=== PATIENT | female | born 1995 | race Caucasian/White ===

== ENCOUNTER → 2016-09-27 | Outpatient (REF) | payer OTHER ==
[~2016-09-27] MED LIST: ACET500T2 OR; IBUP600T OR; IBUP80TA PO; PNV-CAP5 PO
[2016-09-27 11:23] LABS: MEAN CORPUSCULAR HEMOGLOBIN 27.5 pg (27.0-33.0); MEAN CORPUSCULAR HGB CONC 33.1 g/dl (32.0-36.5); MEAN CORPUSCULAR VOLUME 83.1 fl (80.0-96.0); RED CELL DISTRIBUTION WIDTH 14.2 % (11.5-14.5); WHITE BLOOD COUNT 8.7 K/mm3 (4.0-10.0)
[2016-09-27 11:39] LABS: FOLATE 5.6 NG/ML (>5.4); VITAMIN B12 LEVEL 609 PG/ML (247-911)
[2016-09-27 11:57] LABS: ALBUMIN 3.8 GM/DL (3.2-5.2); ALBUMIN/GLOBULIN RATIO 1.12 (1.00-1.93); ALKALINE PHOSPHATASE 92 U/L (45-117); ALT/SGPT 16 U/L (12-78); ANION GAP 10 MEQ/L (8-16); AST/SGOT 15 U/L (15-37); BILIRUBIN,TOTAL 0.5 MG/DL (0.2-1.0); BLOOD UREA NITROGEN 13 MG/DL (7-18); CALCIUM LEVEL 8.8 MG/DL (8.5-10.1); CARBON DIOXIDE LEVEL 27 MEQ/L (21-32); CHLORIDE LEVEL 107 MEQ/L (98-107); CREATININE FOR GFR 0.78 MG/DL (0.55-1.02); FERRITIN 8 NG/ML (8-252); GLUCOSE, FASTING 80 MG/DL (70-105); PERCENT SATURATION 15.6 % (13.2-37.4); POTASSIUM SERUM 3.9 MEQ/L (3.5-5.1); SODIUM LEVEL 144 MEQ/L (136-145); TOTAL IRON BINDING CAPACITY 405 UG/DL (250-450); TOTAL PROTEIN 7.2 GM/DL (6.4-8.2)
== END ==
LOC: M SFHCCLAY 08:31
PROVIDERS: ATTEND Nurse Practitioner
DX: Z86.2 Personal history of diseases of the blood and blood-forming organs and certain disorders involving the immune mechanism (principal); L65.9 Nonscarring hair loss, unspecified

== ENCOUNTER 2017-02-26 14:08 | Emergency (ER) | payer OTHER, SELFPAY ==
[~2017-02-26] VITALS: Ht 167.6 cm; Wt 68.0 kg
[2017-02-26 14:10] VITALS: BP 121/75
[2017-02-26] MEDS ORDERED: SPRI28TA PO (14:21)
[2017-02-26 15:05] LABS: BASO % 0.3 % (0.0-1.0); EOS % 0.3 % (0.0-3.0); LARGE UNSTAINED CELL # 0.1 K/mm3 (0.0-0.4); LARGE UNSTAINED CELL % 1.5 % (0.0-4.0); LYMPH # 2.3 K/mm3 (1.5-6.5); LYMPH % 22.9 % (24.0-44.0); MEAN CORPUSCULAR HEMOGLOBIN 26.3 pg (27.0-33.0); MEAN CORPUSCULAR HGB CONC 33.1 g/dl (32.0-36.5); MEAN CORPUSCULAR VOLUME 79.5 fl (80.0-96.0); MONO # 0.5 K/mm3 (0.0-0.8); MONO % 5.5 % (0.0-5.0); NEUTROPHILS # 6.5 K/mm3 (1.8-7.7); NEUTROPHILS % 69.5 % (36.0-66.0); PLATELET COUNT, AUTOMATED 327 k/mm3 (150-450); RED CELL DISTRIBUTION WIDTH 15.1 % (11.5-14.5); WHITE BLOOD COUNT 9.3 K/mm3 (4.0-10.0)
[2017-02-26 15:17] LABS: CONTROL LINE HCG INT CTR LINE PRESENT
== END 2017-02-26 16:06 | disposition home or self-care (01) ==
LOC: M ED 15:35
DX: N93.8 Other specified abnormal uterine and vaginal bleeding (principal); Z79.3 Long term (current) use of hormonal contraceptives; Z88.0 Allergy status to penicillin

== ENCOUNTER → 2017-08-23 | Outpatient (CLI) | payer OTHER ==
[~2017-08-23] MED LIST changes: +SPRI28TA PO
--- NOTE | 2017-08-23 17:11 | REP ---
Chest two views HISTORY: Cough Comparison: 10/13/2015 The lungs are clear. The heart is normal in size. The pulmonary vasculature is normal in appearance. The bony structure is intact. IMPRESSION: No acute disease. Signed by Maikel Hernández MD 08/23/2017 05:02 P
== END ==
LOC: M WUC 15:34
PROVIDERS: ATTEND Physician Assistant
DX: R05 Cough (principal)

== ENCOUNTER 2018-02-18 10:56 | Emergency (ER) | payer MEDICAID, OTHER | END 2018-02-18 13:21 | disposition home or self-care (01) | LOC: M ED 10:56 | DX: R05 Cough (principal); R49.0 Dysphonia; R91.8 Other nonspecific abnormal finding of lung field; F17.200 Nicotine dependence, unspecified, uncomplicated; Z88.0 Allergy status to penicillin | CPT/HCPCS: 71046 ==

== ENCOUNTER 2018-10-09 09:56 | Emergency (ER) | payer MEDICAID, OTHER ==
[~2018-10-09] VITALS: Ht 167.6 cm; Wt 68.2 kg
[~2018-10-09 09:56] MED LIST changes: +AZIT-12 PO
[2018-10-09] MEDS ORDERED: prenatal (10:02)
[2018-10-09 10:31] LABS: BASO % 0.3 % (0.0-1.0); EOS # 0.1 10^3/uL (0.0-0.50); EOS % 0.6 % (0.0-3.0); HEMATOCRIT 40.3 % (36.0-47.0); HEMOGLOBIN 13.5 g/dl (12.0-15.5); LYMPH # 2.1 10^3/uL (1.5-6.5); MEAN CORPUSCULAR HEMOGLOBIN 28.7 pg (27.0-33.0); MEAN CORPUSCULAR HGB CONC 33.5 g/dl (32.0-36.5); MEAN CORPUSCULAR VOLUME 85.6 fl (80.0-96.0); MONO # 0.6 10^3/uL (0.0-0.8); MONO % 7.6 % (0.0-5.0); NEUTROPHILS # 5.1 10^3/uL (1.8-7.7); NEUTROPHILS % 65.2 % (36.0-66.0); PLATELET COUNT, AUTOMATED 275 10^3/uL (150-450); RED BLOOD COUNT 4.71 10^6/uL (4.00-5.40); WHITE BLOOD COUNT 7.9 10^3/uL (4.0-10.0)
[2018-10-09 10:34] LABS: URINE PREG TEST NEGATIVE (NEGATIVE)
--- NOTE | 2018-10-09 11:53 | REP ---
EMERGENCY FIRST TRIMESTER OBSTETRIC SONOGRAPHY: HISTORY: Vaginal bleeding. FINDINGS: Transabdominal and transvaginal scanning are performed. On transvaginal imaging, there is no discernible intrauterine gestation. Uterine dimensions are 9.9 x 5.0 x 6.7 cm. Endometrial echo is 0.8 cm thick. Uterus is empty. There is no evidence of free fluid the cul-de-sac. Right ovary measures 3.1 x 2.3 x 2.4 cm. Left ovarian dimensions are 2.9 x 1.9 x 1.8 cm. Doppler flow is normal in both ovaries, resistive indices are 0.55 and 0.67 on the right and left respectively. There is a 0.4 cm echogenic focus in the left ovary which may be a hemorrhagic follicle. No free fluid. IMPRESSION: Empty uterus. No adnexal mass, significant cyst, or free fluid. Nonspecific sonographic findings. Clinical and possibly sonographic followup advised. Electronically Signed by Mehul Sahu MD 10/09/2018 01:21 P
[2018-10-09 11:57] VITALS: BP 113/76
== END 2018-10-09 11:58 | disposition home or self-care (01) ==
LOC: M ED 09:56
DX: N93.9 Abnormal uterine and vaginal bleeding, unspecified (principal); Z88.0 Allergy status to penicillin

== ENCOUNTER → 2018-10-31 | Outpatient (CLI) | payer OTHER ==
[~2018-10-31] MED LIST changes: +prenatal
[2018-10-31 11:36] LABS: HCG, SERUM QUALITATIVE NEGATIVE (NEGATIVE)
[2018-10-31 11:45] LABS: FREE T4 0.87 NG/DL (0.76-1.46)
== END ==
LOC: M LAB 10:46
PROVIDERS: ATTEND Advanced Practice Midwife
DX: N91.1 Secondary amenorrhea (principal)

== ENCOUNTER → 2018-11-02 | Outpatient (CLI) | payer OTHER ==
--- NOTE | 2018-11-02 11:31 | REP ---
PA and lateral chest: Comparison is 02/18/2018. The lung tucker are clear. The cardiac size is normal. The varun, mediastinum, and skeletal structures are unremarkable. Impression: Negative PA and lateral chest. Electronically Signed by Nilay Oconnell MD 11/02/2018 11:22 A
== END ==
LOC: M CLY 11:03
PROVIDERS: ATTEND Family Medicine
DX: R50.9 Fever, unspecified (principal); R05 Cough

== ENCOUNTER 2018-12-25 19:38 | Emergency (ER) | payer OTHER ==
[~2018-12-25] VITALS: Ht 167.6 cm; Wt 71.4 kg
[2018-12-25 19:39] VITALS: BP 111/68
--- NOTE | 2018-12-26 10:20 | REP ---
Clinical: Right knee pain Technique: AP, lateral, bilateral oblique and sunrise views. Findings: The osseous structures and joint spaces are intact and normal. There is no evidence for acute fracture or dislocation. No joint effusion is appreciated. Surrounding soft tissues are unremarkable. No subcutaneous emphysema or radiodense foreign body. Impression: Normal examination. No acute fracture or dislocation. Electronically Signed by Ty Pedersen MD 12/26/2018 10:11 A
== END 2018-12-25 22:30 | disposition left against medical advice (07) ==
LOC: M ED 19:38
DX: Z53.21 Procedure and treatment not carried out due to patient leaving prior to being seen by health care provider (principal)

== ENCOUNTER 2019-07-09 11:29 | Day surgery (SDC) | payer OTHER ==
[~2019-07-09] VITALS: Ht 167.6 cm; Wt 72.8 kg
[~2019-07-09 11:29] MED LIST changes: +LR 1,000 ML IV ONE; +ceFAZolin SOD 2 GM in IV 1 EA IV ONE
[2019-07-09] MEDS ORDERED: LIDOCAINE 1% MDV 20ML VIAL ONE (11:30)
[2019-07-09] MEDS ORDERED: EPINEPHrine INJ 1 MG/ML 1ML AMP ONE (11:30)
[2019-07-09] MEDS ORDERED: ROPIvacaine 0.5% 30 ML INJECTION (J2795 PER 1MG) ONE (11:30)
[2019-07-09] MEDS ORDERED: MIDAZOLAM INJ 2 MG/2 ML VIAL (J2250) As Ordered ONE ×2 (12:02→13:30)
[2019-07-09] MEDS ORDERED: fentaNYL 100 MCG/2 ML INJECTION (J3010) As Ordered ONE ×2 (12:02→13:30)
[2019-07-09] MEDS ORDERED: ROCURONIUM BROMIDE 50 MG/5 ML VIAL As Ordered ONE (12:04)
[2019-07-09] MEDS ORDERED: PROPOFOL 200 MG/20 ML VIAL As Ordered ONE ×3 (12:04→17:08)
[2019-07-09] MEDS ORDERED: dexameTHASONE 4 MG/ML 1ML VIAL (J1100) As Ordered ONE (12:05)
[2019-07-09] MEDS ORDERED: LIDOCAINE 2% INJ 100 MG/5 ML SDV (FOR ANES.) As Ordered ONE (12:05)
[2019-07-09] MEDS ORDERED: ONDANSETRON 4MG/2ML VIAL (J2405) As Ordered ONE (12:05)
[2019-07-09] MEDS ORDERED: KETOROLAC 60 MG/2 ML VIAL (J1885) As Ordered ONE (12:08)
[2019-07-09] MEDS ORDERED: ACETAMINOPHEN 1000MG 100ML IV BTL (OFIRMEV) (J0131 PER 10MG) As Ordered ONE (12:08)
[2019-07-09] MEDS: fentaNYL 100 MCG/2 ML INJECTION (J3010) IV PRN ×3 (14:17→18:21)
[2019-07-09] MEDS: MIDAZOLAM INJ 2 MG/2 ML VIAL (J2250) IV PRN (14:17)
[2019-07-09] MEDS ORDERED: ROPIvacaine 0.5% 30 ML INJECTION (J2795 PER 1MG) As Ordered ONE (15:03)
[2019-07-09] MEDS ORDERED: SCOPOLAMINE 1MG TRANSDERMAL PATCH As Ordered ONE (15:07)
[2019-07-09] MEDS ORDERED: ceFAZolin 2 GM/D5W 50 ML IV BAG (J0690 PER 500MG) As Ordered ONE (15:29)
[2019-07-09] MEDS ORDERED: PHENYLephrine HCL 500 MCG/5 ML (100MCG/ML) SYRINGE (J2370) As Ordered ONE (16:18)
[2019-07-09] MEDS ORDERED: METOCLOPRAMIDE INJ 10MG/2ML VIAL (J2765) As Ordered ONE (17:31)
[2019-07-09] MEDS ORDERED: PERCOCET 5MG/325MG TAB As Ordered ONE (18:14)
[2019-07-09] MEDS ORDERED: METOCLOPRAMIDE INJ 10MG/2ML VIAL (J2765) IV PRN (18:15)
[2019-07-09] MEDS ORDERED: ONDANSETRON 4MG/2ML VIAL (J2405) IV PRN (18:15)
[2019-07-09] MEDS ORDERED: LR 1,000 ML IV SCH ×2 (18:15→19:31)
[2019-07-09] MEDS ORDERED: fentaNYL 100 MCG/2 ML INJECTION (J3010) IV PRN (18:15)
[2019-07-09] MEDS: PERCOCET 5MG/325MG TAB PO PRN ×2 (18:35→19:05)
--- NOTE | 2019-07-09 18:43 | REP ---
C-ARM VIEWS RIGHT KNEE: Three C-ARM views of the right knee are performed. Metallic probe is seen along the periphery of the medial femoral condyle. Osseous structures are well aligned. 8 seconds of fluoroscopy time was utilized. Electronically Signed by Nilay King MD 07/11/2019 09:36 A
[2019-07-09 20:40] VITALS: BP 113/56
--- NOTE | 2019-07-10 08:17 | RO ---
DATE OF PROCEDURE: 07/09/2019 PREOPERATIVE DIAGNOSIS: 1. Right knee recurrent patellar instability. POSTOPERATIVE DIAGNOSIS: 1. Right knee recurrent patellar instability. PROCEDURE: 1. Right knee diagnostic arthroscopy. 2. Right knee medial patellofemoral ligament reconstruction with allograft. SURGEON: Donnell Nieves MD EMERGENCY DEPARTMENT PHYSICIAN: THOR Baires ANESTHESIA: General with preoperative nerve block. IV FLUIDS: Lactated Ringer's. ESTIMATED BLOOD LOSS: 10 mL. IMPLANTS: Arthrex 3 mm SutureTak times two and Arthrex 5.5 mm corkscrew times one. CLOSURE: Nylon. PROCEDURE: Patient identified in preoperative holding area. The right leg was marked by myself. Prior to her nerve block I assessed her lateral patellar translation. She had 3+ quadrants of lateral patellar mobility at the end point and a dramatically positive apprehension sign, but this completely alleviated at 30 degrees of knee flexion and therefore no tibial tubercle osteotomy indicated. Following her abductor canal block, she was brought to the operating room, placed supine on a well-padded OR table. General anesthesia was induced. Exam under anesthesia revealed four quadrants a lateral patellar mobility with no endpoint, grade 1A Teddy, pseudolaxity to valgus stress. Stable to varus stress. Negative posterior drawer. Negative J sign. A well-padded tourniquet was applied of the right thigh. Venodyne boot on the left lower extremity for deep vein thrombosis (DVT) prophylaxis and then the right lower extremity was prepped and draped in a normal sterile fashion from the toes up to the tourniquet. She received appropriate IV antibiotics. Prior to incision, a time-out was performed per hospital protocol. Jennifer Robertson was present for the entire procedure and participated in all essential portions of the procedure. This included patient positioning and draping, holding retractors, stabilizing the patella while drilling, assisting with suture passage and knot tying, assisting with passing the graft and wound closure. The right leg was exsanguinated with an Esmarch bandage and tourniquet inflated to 250 mmHg. The knee was insufflated with Lactated Ringer's. Standard anterolateral portal made with an 11 blade. 30 degree arthroscope was introduced into the joint. A diagnostic arthroscopy revealed that her patella sat subluxated laterally; however, the chondral surfaces were intact in the patellofemoral joint. The gutters were inspected. No loose bodies. The medial compartment was entered. No chondromalacia, no meniscus tears. ACL appeared unremarkable. The leg was brought to the figure four position where there were no chondral defects and no lateral meniscus tears. No indication for chondroplasty. The knee was irrigated and drained. We then proceeded with medial patella-femoral ligament (MPFL) reconstruction. Semitendinosus allograft thawed on the back table and then whipstitches placed in each end by my first breaker feeder. I made a 3 cm incision with a 15 blade along the medial border of the patella and then dissected down to the superficial retinaculum with Metzenbaum scissors. Fresh 15 blade used to dissect through layers one and two, but not violating the capsule. A needle nose rongeur was used to create a trough in the medial border of the patella. I then dissected between layers two and three with Metzenbaum scissors extending medially towards the proposed medial incision at the medial epicondyle. I then placed two Arthrex 3 mm BioComposite SutureTak, one at the equator and the other a centimeter proximal to it. They both had excellent fixation. I then made a separate incision centered over the medial epicondyle and abductor tubercle. I dissected down to the soft spot between the abductor tubercle and the medial epicondyle which was marked with cautery. A small nerve branch and two accompanying small venous structures were mobilized and gently retracted anteriorly and protected throughout the case. A K-wire was then placed with the wire cdl dedicated truck driver at [place]ottle's point. Appropriate position was confirmed using AP and lateral views with a large C-arm. The TigerWire sutures from each anchor in the patella were then passed between layers two and three and wrapped around the K-wire and then the knee was flexed from 0 to 90 degrees to ensure this was the isometric point and it was. I then used a curve free needle to secure the semitendinosus allograft to the medial border of the patella using all four suture limbs from each anchor. Great care was taken to bury the knots as much as possible. With secure fixation to the patella I then placed a 5.5 corkscrew after the K-wire was removed. This had excellent fixation. The tails of the allograft were then passed between layers two and three with a passing stitch and then the free needle was used to anchor each tail of the allograft to the anchor. Prior to securing the construct by tying knots, I did assess lateral patellar translation with the knee at 0, 10, 20, 30, 40 and 50 degrees of flexion. Several additional passes from each of the fiber and TigerWire suture were then made to further tightened the construct. Now there was two quadrants a lateral patellar mobility with a firm endpoint. Great care was taken to not over tighten the construct. Knots were then tied by hand with the knee in 40 degrees of flexion. Excess allograft was trimmed and discarded. Both the fiber and TigerWire were then passed through the deeper fascia with a curve free needle to reinforce the construct. Excess suture was then trimmed and discarded. Both incisions were extensively irrigated. The arthrotomy was then closed with #1 Vicryl in a figure-of-8 fashion taking care to grasp as much of the deep layer as possible. Final assessment of lateral patellar translation revealed two quadrants of lateral patellar mobility with an excellent endpoint. The tourniquet was let down on at 100 minutes with excellent reperfusion. Both incisions were re-irrigated and then closed with #2-0 Vicryl and running nylon. The arthroscopy portals closed with nylon. Bulky sterile dressing was applied. Hinged knee brace locked in extension was placed. All counts were correct times two. Complications none. She was extubated, transferred to postanesthesia care unit (PACU) in stable condition.
== END 2019-07-09 20:50 | disposition home or self-care (01) ==
LOC: M SDC 11:29
PROVIDERS: ATTEND Orthopaedic Surgery
DX: M25.361 Other instability, right knee (principal); Z88.0 Allergy status to penicillin
CPT/HCPCS: 27427; 29870; 64445; 76000; C1713; C1762; J0131; J0690; J1100; J1885; J2250; J2370; J2405; J2765; J2795; J3010

== ENCOUNTER → 2020-11-06 | Outpatient (CLI) | payer OTHER ==
[~2020-11-06] MED LIST changes: -LR 1,000 ML IV ONE; -ceFAZolin SOD 2 GM in IV 1 EA IV ONE
--- NOTE | 2020-11-06 08:50 | REP ---
INDICATION: CHEST PAIN COMPARISON: 02/18/2018, 11/02/2018 TECHNIQUE: PA and lateral. FINDINGS: The mediastinum and cardiac silhouette are normal. No focal consolidation or effusion. A very mild viral interstitial Gomez an cannot be excluded. The skeletal structures are intact and normal. IMPRESSION: No focal consolidation. Mild viral pneumonia cannot be excluded. If the patient remains symptomatic consider repeat chest x-ray or chest CT for further investigation. <Electronically signed by Ty Pedersen > 11/06/20 [id number]
== END ==
LOC: M CLY 08:16
PROVIDERS: ATTEND Nurse Practitioner Family
DX: R07.9 Chest pain, unspecified (principal)

== ENCOUNTER → 2021-08-03 | Outpatient (REF) | payer OTHER ==
[2021-08-04 11:32] LABS: BASO % 0.3 % (0.0-1.0); EOS % 0.3 % (0.0-3.0); HEMATOCRIT 42.4 % (36.0-47.0); HEMOGLOBIN 14.1 g/dl (12.0-15.5); LYMPH # 2.5 10^3/uL (1.5-5.0); MEAN CORPUSCULAR HEMOGLOBIN 28.6 pg (27.0-33.0); MEAN CORPUSCULAR HGB CONC 33.3 g/dl (32.0-36.5); MONO # 0.7 10^3/uL (0.0-0.8); MONO % 7.9 % (2.0-8.0); NEUTROPHILS % 64.3 % (36.0-66.0); PLATELET COUNT, AUTOMATED 322 10^3/uL (150-450); RED BLOOD COUNT 4.93 10^6/uL (4.00-5.40); WHITE BLOOD COUNT 9.3 10^3/uL (4.0-10.0)
[2021-08-04 12:31] LABS: ALBUMIN 4.2 GM/DL (3.2-5.2); ALT/SGPT 25 U/L (12-78); BILIRUBIN,TOTAL 0.3 MG/DL (0.2-1.0); BLOOD UREA NITROGEN 16 MG/DL (7-18); CALCIUM LEVEL 9.9 MG/DL (8.5-10.1); CARBON DIOXIDE LEVEL 33 MEQ/L (21-32); CHLORIDE LEVEL 105 MEQ/L (98-107); CREATININE FOR GFR 0.88 MG/DL (0.55-1.30); FREE T4 0.99 NG/DL (0.76-1.46); GLOMERULAR FILTRATION RATE > 60.0 (>60); GLUCOSE, FASTING 101 MG/DL (70-100); POTASSIUM SERUM 5.1 MEQ/L (3.5-5.1); SODIUM LEVEL 140 MEQ/L (136-145); TOTAL PROTEIN 7.4 GM/DL (6.4-8.2)
== END ==
LOC: M SFHCCLAY 14:35
PROVIDERS: ATTEND Nurse Practitioner Family
DX: R10.11 Right upper quadrant pain (principal); G44.219 Episodic tension-type headache, not intractable

== ENCOUNTER → 2021-08-06 | Outpatient (REF) | payer OTHER | LOC: M LAB REF 15:32 | PROVIDERS: ATTEND Physician Assistant | DX: R05.9 Cough, unspecified (principal) ==

== ENCOUNTER 2021-10-15 17:32 | Emergency (ER) | payer OTHER ==
[2021-10-15 17:32] VITALS: BP 124/78
[2021-10-15] MEDS ORDERED: HYDR-3713 (17:42)
[2021-10-15] MEDS ORDERED: CLIN-250 (17:42)
== END 2021-10-15 20:39 | disposition left against medical advice (07) ==
LOC: M ED 17:32
DX: Z53.21 Procedure and treatment not carried out due to patient leaving prior to being seen by health care provider (principal)

== ENCOUNTER → 2022-04-16 | Outpatient (CLI) | payer OTHER ==
[~2022-04-16] MED LIST changes: +CLIN-250; +HYDR-3713
[2022-04-16 13:15] LABS: BASO % 0.3 % (0.0-1.0); EOS % 0.1 % (0.0-3.0); HEMATOCRIT 39.2 % (36.0-47.0); HEMOGLOBIN 13.3 g/dl (12.0-15.5); LYMPH # 2.1 10^3/uL (1.5-5.0); LYMPH % 18.3 % (24.0-44.0); MEAN CORPUSCULAR HEMOGLOBIN 29.3 pg (27.0-33.0); MEAN CORPUSCULAR HGB CONC 33.9 g/dl (32.0-36.5); MEAN CORPUSCULAR VOLUME 86.3 fl (80.0-96.0); MONO # 0.6 10^3/uL (0.0-0.8); MONO % 5.4 % (2.0-8.0); NEUTROPHILS # 8.6 10^3/uL (1.5-8.5); NEUTROPHILS % 75.5 % (36.0-66.0); PLATELET COUNT, AUTOMATED 294 10^3/uL (150-450); RED BLOOD COUNT 4.54 10^6/uL (4.00-5.40); WHITE BLOOD COUNT 11.4 10^3/uL (4.0-10.0)
[2022-04-16 14:16] LABS: HEPATITIS C VIRUS ABY INDEX < 0.0 INDEX (<0.8); HIV 1&2 SCREEN CENTAUR NEGATIVE (NEGATIVE)
[2022-04-16 16:03] LABS: GC DNA AMPLIFICATION NEGATIVE (NEGATIVE)
== END ==
LOC: M PLALAB 09:23
PROVIDERS: ATTEND Obstetrics & Gynecology
DX: Z34.92 Encounter for supervision of normal pregnancy, unspecified, second trimester (principal); Z3A.00 Weeks of gestation of pregnancy not specified

== ENCOUNTER → 2022-04-16 | Outpatient (CLI) | payer OTHER | LOC: M PLALAB 09:19 | PROVIDERS: ATTEND Advanced Practice Midwife | DX: Z34.81 Encounter for supervision of other normal pregnancy, first trimester (principal); Z3A.00 Weeks of gestation of pregnancy not specified ==

== ENCOUNTER → 2022-06-11 | Outpatient (CLI) | payer OTHER | LOC: M WHC 07:12 | PROVIDERS: ATTEND Obstetrics & Gynecology | DX: Z36.89 Encounter for other specified antenatal screening (principal); Z3A.20 20 weeks gestation of pregnancy; O36.5930 Maternal care for other known or suspected poor fetal growth, third trimester, not applicable or unspecified ==

== ENCOUNTER → 2022-07-06 | Outpatient (CLI) | payer OTHER | LOC: M WHC 09:10 | PROVIDERS: ATTEND Advanced Practice Midwife | DX: O36.5992 Maternal care for other known or suspected poor fetal growth, unspecified trimester, fetus 2 (principal); Z3A.21 21 weeks gestation of pregnancy ==

== ENCOUNTER 2022-07-08 15:34 | Outpatient (CLI) | payer OTHER ==
[~2022-07-08] VITALS: Ht 167.6 cm; Wt 83.9 kg
[2022-07-08] MEDS ORDERED: MULTTAB20 PO (16:02)
[2022-07-08] MEDS ORDERED: ACET-683 PO (16:02)
[2022-07-08 16:05] VITALS: BP 116/67
[2022-07-08] MEDS ORDERED: BETAMETHASONE SOLUSPAN 6MG/ML 5ML VIAL (J0702 PER 3MG) IM ONE (16:05)
[2022-07-08] MEDS ORDERED: HOME MED LIST COMPLETE! XX SCH (16:05)
[2022-07-08 17:48] VITALS: BP 114/62
== END 2022-07-08 18:42 | disposition home or self-care (01) ==
LOC: M LDO 15:34
PROVIDERS: ATTEND Obstetrics & Gynecology
DX: O36.5929 Maternal care for other known or suspected poor fetal growth, second trimester, other fetus (principal); O12.02 Gestational edema, second trimester; Z3A.24 24 weeks gestation of pregnancy
CPT/HCPCS: 59025; 76819; 76820; 96372; J0702

== ENCOUNTER 2022-07-09 16:32 | Outpatient (CLI) | payer OTHER ==
[~2022-07-09] VITALS: Ht 167.6 cm; Wt 83.8 kg
[~2022-07-09 16:32] MED LIST changes: +ACET-683 PO; +MULTTAB20 PO
[2022-07-09 16:59] VITALS: BP 120/68
[2022-07-09] MEDS ORDERED: BETAMETHASONE SOLUSPAN 6MG/ML 5ML VIAL (J0702 PER 3MG) IM ONE (17:05)
[2022-07-09] MEDS ORDERED: HOME MED LIST COMPLETE! XX SCH (17:10)
[2022-07-09 17:30] VITALS: BP 126/68
== END 2022-07-09 17:37 | disposition home or self-care (01) ==
LOC: M LDO 16:32
PROVIDERS: ATTEND Specialist
DX: O36.5920 Maternal care for other known or suspected poor fetal growth, second trimester, not applicable or unspecified (principal); O12.02 Gestational edema, second trimester; Z3A.24 24 weeks gestation of pregnancy
CPT/HCPCS: 59025; 96372; J0702

== ENCOUNTER → 2022-07-16 | Outpatient (CLI) | payer OTHER | LOC: M WHC 12:06 | PROVIDERS: ATTEND Obstetrics & Gynecology | DX: O36.5990 Maternal care for other known or suspected poor fetal growth, unspecified trimester, not applicable or unspecified (principal); O32.2XX0 Maternal care for transverse and oblique lie, not applicable or unspecified; Z3A.00 Weeks of gestation of pregnancy not specified ==

== ENCOUNTER → 2022-07-23 | Outpatient (CLI) | payer OTHER | LOC: M WHC 10:20 | PROVIDERS: ATTEND Obstetrics & Gynecology | DX: O36.5990 Maternal care for other known or suspected poor fetal growth, unspecified trimester, not applicable or unspecified (principal); Z3A.00 Weeks of gestation of pregnancy not specified ==

== ENCOUNTER → 2022-07-29 | Outpatient (CLI) | payer OTHER | LOC: M WHC 10:06 | PROVIDERS: ATTEND Obstetrics & Gynecology | DX: O36.5990 Maternal care for other known or suspected poor fetal growth, unspecified trimester, not applicable or unspecified (principal); Z3A.00 Weeks of gestation of pregnancy not specified ==

== ENCOUNTER → 2022-08-04 | Outpatient (CLI) | payer OTHER | LOC: M WHC 14:53 | PROVIDERS: ATTEND Obstetrics & Gynecology | DX: O36.5990 Maternal care for other known or suspected poor fetal growth, unspecified trimester, not applicable or unspecified (principal); Z3A.28 28 weeks gestation of pregnancy ==

== ENCOUNTER → 2022-08-11 | Outpatient (CLI) | payer OTHER ==
[~2022-08-11] MED LIST changes: +TUMS500C PO
[2022-08-17 23:10] LABS: ANTI PARVO VIRUS LEVEL IGG 0.2 index (0.0-0.8); ANTI PARVO VIRUS LEVEL IgM 0.2 index (0.0-0.8); COXSACKIE TYPE B1 1:32 (Neg:<1:8); COXSACKIE TYPE B3 1:32 (Neg:<1:8); COXSACKIE TYPE B4 1:32 (Neg:<1:8); COXSACKIE TYPE B6 1:32 (Neg:<1:8); CYTOMEGALOVIRUS IgG ANTIBODY <0.60 U/mL (0.00-0.59); CYTOMEGALOVIRUS IgM ANTIBODY <30.0 AU/mL (0.0-29.9); HERPES ZOSTER, VARICELLA IgG 297 index (Immune >165); HERPES ZOSTER, VARICELLA IgM <0.91 index (0.00-0.90); HSV TYPE II IgG SPECIFIC <0.91 index (0.00-0.90); RUBELLA IgG FOR TORCH EVAL 1.48 index (Immune >0.99); TOXOPLASMA IgG ABY <3.0 IU/mL (0.0-7.1)
== END ==
LOC: M PLALAB 10:49
PROVIDERS: ATTEND Advanced Practice Midwife
DX: O36.5990 Maternal care for other known or suspected poor fetal growth, unspecified trimester, not applicable or unspecified (principal); Z3A.00 Weeks of gestation of pregnancy not specified

== ENCOUNTER → 2022-08-11 | Outpatient (CLI) | payer OTHER ==
[2022-08-11 13:58] LABS: HEMATOCRIT 35.9 % (36.0-47.0); HEMOGLOBIN 11.8 g/dl (12.0-15.5); MEAN CORPUSCULAR HGB CONC 32.9 g/dl (32.0-36.5); MEAN CORPUSCULAR VOLUME 88.2 fl (80.0-96.0); PLATELET COUNT, AUTOMATED 307 10^3/uL (150-450); RED BLOOD COUNT 4.07 10^6/uL (4.00-5.40); WHITE BLOOD COUNT 13.1 10^3/uL (4.0-10.0)
[2022-08-11 17:04] LABS: GC DNA AMPLIFICATION NEGATIVE (NEGATIVE)
== END ==
LOC: M PLALAB 10:47
PROVIDERS: ATTEND Obstetrics & Gynecology
DX: Z36.89 Encounter for other specified antenatal screening (principal); Z3A.24 24 weeks gestation of pregnancy

== ENCOUNTER → 2022-08-11 | Outpatient (CLI) | payer OTHER | LOC: M WHC 09:47 | PROVIDERS: ATTEND Obstetrics & Gynecology | DX: O36.5992 Maternal care for other known or suspected poor fetal growth, unspecified trimester, fetus 2 (principal); Z3A.25 25 weeks gestation of pregnancy ==

== ENCOUNTER 2022-08-16 11:54 | Outpatient (CLI) | payer OTHER ==
[~2022-08-16] VITALS: Ht 167.6 cm; Wt 88.6 kg
[~2022-08-16 11:54] MED LIST changes: -TUMS500C PO
[2022-08-16 12:14] VITALS: BP 114/75
[2022-08-16] MEDS ORDERED: TUMS500C PO (12:18)
[2022-08-16] MEDS ORDERED: HOME MED LIST COMPLETE! XX SCH (12:20)
[2022-08-16 12:52] VITALS: BP 115/68
== END 2022-08-16 14:42 | disposition home or self-care (01) ==
LOC: M LDO 11:54
PROVIDERS: ATTEND Advanced Practice Midwife
DX: O36.5930 Maternal care for other known or suspected poor fetal growth, third trimester, not applicable or unspecified (principal); Z3A.30 30 weeks gestation of pregnancy

== ENCOUNTER → 2022-08-18 | Outpatient (CLI) | payer OTHER ==
[~2022-08-18] MED LIST changes: +TUMS500C PO
== END ==
LOC: M RAD 12:23
PROVIDERS: ATTEND Obstetrics & Gynecology
DX: O36.5933 Maternal care for other known or suspected poor fetal growth, third trimester, fetus 3 (principal); Z3A.30 30 weeks gestation of pregnancy; O32.1XX0 Maternal care for breech presentation, not applicable or unspecified

== ENCOUNTER → 2022-08-26 | Outpatient (CLI) | payer OTHER | LOC: M WHC 10:08 | PROVIDERS: ATTEND Obstetrics & Gynecology | DX: O36.5993 Maternal care for other known or suspected poor fetal growth, unspecified trimester, fetus 3 (principal); Z3A.31 31 weeks gestation of pregnancy ==

== ENCOUNTER → 2022-09-02 | Outpatient (CLI) | payer OTHER | LOC: M WHC 09:59 | PROVIDERS: ATTEND Obstetrics & Gynecology | DX: O36.8990 Maternal care for other specified fetal problems, unspecified trimester, not applicable or unspecified (principal); Z3A.32 32 weeks gestation of pregnancy ==

== ENCOUNTER → 2022-09-09 | Outpatient (CLI) | payer OTHER | LOC: M WHC 10:01 | PROVIDERS: ATTEND Obstetrics & Gynecology | DX: O36.5990 Maternal care for other known or suspected poor fetal growth, unspecified trimester, not applicable or unspecified (principal) ==

== ENCOUNTER → 2022-09-14 | Outpatient (CLI) | payer OTHER | LOC: M WHC 11:26 | PROVIDERS: ATTEND Obstetrics & Gynecology | DX: O36.5990 Maternal care for other known or suspected poor fetal growth, unspecified trimester, not applicable or unspecified (principal); Z3A.00 Weeks of gestation of pregnancy not specified ==

== ENCOUNTER → 2022-09-14 | Outpatient (CLI) | payer OTHER ==
[2022-09-14 17:30] LABS: PROTHROMBIN TIME 13.4 SECONDS (12.5-14.5)
[2022-09-14 17:31] LABS: PARTIAL THROMBOPLASTIN TIME 29.5 SECONDS (24.8-34.2)
[2022-09-14 17:49] LABS: ALBUMIN 2.6 G/DL (3.2-5.2); ALKALINE PHOSPHATASE 95 U/L (46-116); ALT/SGPT 12 U/L (7.0-40); AST/SGOT 18 U/L (<34); BILIRUBIN,TOTAL 0.2 MG/DL (0.3-1.2); BLOOD UREA NITROGEN 6 MG/DL (9-23); CARBON DIOXIDE LEVEL 26 MMOL/L (20-31); CHLORIDE LEVEL 105 MMOL/L (98-107); CREATININE FOR GFR 0.58 MG/DL (0.55-1.30); GLOMERULAR FILTRATION RATE > 60.0 (>60); GLUCOSE, FASTING 76 MG/DL (60-100); SODIUM LEVEL 140 MMOL/L (136-145)
== END ==
LOC: M PLALAB 15:09
PROVIDERS: ATTEND Advanced Practice Midwife
DX: O36.5990 Maternal care for other known or suspected poor fetal growth, unspecified trimester, not applicable or unspecified (principal)

== ENCOUNTER → 2024-08-24 | Outpatient (CLI) | payer OTHER | LOC: M PLALAB 13:01 | PROVIDERS: ATTEND Specialist | DX: O20.9 Hemorrhage in early pregnancy, unspecified (principal); Z3A.00 Weeks of gestation of pregnancy not specified ==